=== PATIENT | female | born 1995 | race American Indian/Alaskan Native ===

== ENCOUNTER 2017-01-21 22:10 | Emergency (ER) | payer SELFPAY ==
[2017-01-21 22:26] VITALS: BP 131/76
== END 2017-01-22 06:34 | disposition left against medical advice (07) ==
LOC: ED 22:10
DX: Z53.21 Procedure and treatment not carried out due to patient leaving prior to being seen by health care provider (principal)
CPT/HCPCS: 81025

== ENCOUNTER 2017-10-23 21:58 | Emergency (ER) | payer SELFPAY ==
[2017-10-23 23:45] VITALS: BP 119/71
[2017-10-24 00:22] LABS: HCG Qualitative,Urine Negative (Negative)
[2017-10-24 00:25] LABS: Bilirubin,Urine NEG (Negative); Blood,Urine NEG (Negative); Color,Urine Yellow (Yellow)
[2017-10-24 00:26] LABS: Mucus,Urine 3+ /HPF
== END 2017-10-24 01:50 | disposition left against medical advice (07) ==
LOC: ED 21:58
DX: R10.9 Unspecified abdominal pain (principal); Z53.21 Procedure and treatment not carried out due to patient leaving prior to being seen by health care provider
CPT/HCPCS: 81001; 81025